=== PATIENT | female | born 1985 | race Caucasian/White ===

== ENCOUNTER 2016-11-20 21:59 | Emergency (ER) | payer OTHER | END 2016-11-20 22:45 | disposition home or self-care (01) | LOC: ER 21:59 | DX: B35.8 Other dermatophytoses (principal); E07.9 Disorder of thyroid, unspecified; F41.9 Anxiety disorder, unspecified; G43.909 Migraine, unspecified, not intractable, without status migrainosus; Z90.89 Acquired absence of other organs; Z79.899 Other long term (current) drug therapy; Z88.1 Allergy status to other antibiotic agents ==

== ENCOUNTER 2016-12-01 13:31 | Emergency (ER) | payer OTHER | END 2016-12-01 15:45 | disposition home or self-care (01) | LOC: ER 13:31 | DX: G43.909 Migraine, unspecified, not intractable, without status migrainosus (principal); K08.89 Other specified disorders of teeth and supporting structures; E03.9 Hypothyroidism, unspecified; F41.9 Anxiety disorder, unspecified; Z88.1 Allergy status to other antibiotic agents | CPT/HCPCS: 96374; 96375; J1885; J2765 ==